=== PATIENT | female | born 1990 | race Caucasian/White ===

== ENCOUNTER 2017-01-29 22:02 | Emergency (ER) | payer BC, OTHER ==
[2017-01-29 23:35] LABS: ABSOLUTE BASOPHILS # (AUTO) 0.1 10^3/uL (0.0-0.2); ABSOLUTE EOSINOPHILS # (AUTO) 0.1 10^3/uL (0.0-0.6); ABSOLUTE LYMPHOCYTES (AUTO) 2.1 10^3/uL (0.5-4.7); ABSOLUTE MONOCYTES (AUTO) 0.5 10^3/uL (0.1-1.4); ABSOLUTE NEUT (AUTO) 5.4 10^3/uL (1.7-8.2); BASOPHILS % (AUTO) 0.7 % (0-2); EOSINOPHILS % (AUTO) 1.6 % (0-6); HEMATOCRIT 40.2 % (36.0-47.0); HEMOGLOBIN 13.5 g/dL (12.0-15.5); HGB HCT DIFFERENCE 0.3; LYMPHOCYTES % (AUTO) 25.8 % (13-45); MEAN CORPUSCULAR HEMOGLOBIN 29.3 pg (27.0-33.4); MEAN CORPUSCULAR HGB CONC 33.6 g/dL (32.0-36.0); MEAN CORPUSCULAR VOLUME 87 fl (80-97); MONOCYTES % (AUTO) 6.6 % (3-13); RED CELL DISTRIBUTION WIDTH 12.9 % (11.5-14.0); SEGMENTED NEUTROPHILS % (AUTO) 65.3 % (42-78); WHITE BLOOD COUNT 8.2 10^3/uL (4.0-10.5)
[2017-01-29 23:50] LABS: ALANINE AMINOTRANSFERASE 29 U/L (9-52); ALBUMIN 4.4 g/dL (3.5-5.0); ALKALINE PHOSPHATASE 53 U/L (38-126); ANION GAP 13 (5-19); ASPARTATE AMINO TRANSFERASE 22 U/L (14-36); BILIRUBIN,TOTAL 0.3 mg/dL (0.2-1.3); BLOOD UREA NITROGEN 15 mg/dL (7-20); CALCIUM 9.2 mg/dL (8.4-10.2); CARBON DIOXIDE 24 mmol/L (22-30); CHLORIDE 104 mmol/L (98-107); CREATININE RESULT 0.73 mg/dL (0.52-1.25); GLUCOSE 135 mg/dL (75-110); POTASSIUM 4.2 mmol/L (3.6-5.0); SODIUM 140.9 mmol/L (137-145); TOTAL PROTEIN 6.9 g/dL (6.3-8.2)
[2017-01-30 00:07] LABS: APPEARANCE,URINE SLIGHTLY-CLOUDY; BILIRUBIN,URINE NEGATIVE (NEGATIVE); GLUCOSE, URINE NEGATIVE (NEGATIVE); KETONES,URINE TRACE mg/dL (NEGATIVE); LEUKOCYTE ESTERASE,URINE NEGATIVE (NEGATIVE); NITRITE,URINE NEGATIVE (NEGATIVE); PROTEIN,URINE NEGATIVE (NEGATIVE); URINE SPECIFIC GRAVITY 1.031; UROBILINOGEN,URINE NEGATIVE mg/dL (<2.0)
[2017-01-30 00:21] LABS: URINE BARBITURATES SCREEN NEGATIVE; URINE METHADONE SCREEN NEGATIVE; URINE OPIATES LOW NEGATIVE; URINE PHENCYCLIDINE SCREEN NEGATIVE
[2017-01-30] MEDS ORDERED: NORMAL SALINE 1000 ML 1,000 ML IV ONE (00:55)
[2017-01-30] MEDS ORDERED: KETOROLAC TROMETHAMINE INJ/PF 30 MG/1 ML SDV IV ONE (00:55)
--- NOTE | 2017-01-30 01:03 | ER Document Report ---
ED Neuro Symptoms/Deficit - General Chief Complaint: Leg Pain Stated Complaint: MUSCLE CRAMPS Mode of Arrival: Ambulatory Information source: Patient, Parent TRAVEL OUTSIDE OF THE [place] IN LAST 30 DAYS: No - HPI Notes: Patient arrives with complaints of muscle cramps. States her last several weeks she's had a few episodes where her feet have cramped up causing her toes to crawl up. She states that she was walking out of a movie this evening when both of her feet cramped up causing her toes to curl under her causing her to be unable to walk. She states that she then had a pain go all the way up her legs and her back. She states that the pain was so bad that she thought she was going to pass out, her father states that she may have had a very brief episode of syncope during this episode. There was no tonic-clonic type activity. States now she just feels sore. She is able to walk but states that it is difficult. She complains of some mild decreased sensation to the right foot. She denies any fevers. She denies any nausea, vomiting, diarrhea. She denies any rash. She denies any chest pain, shortness of breath. No rash. No headache, blurred vision. She denies any drug use. She denies any alcohol use. She is on no medications. She denies any medical problems. Nothing makes her symptoms better or worse. - Related Data Allergies/Adverse Reactions: No Known Allergies Allergy (Unverified 01/29/17 22:24) Past Medical History - Social History Smoking Status: Unknown if Ever Smoked Family History: Reviewed & Not Pertinent Patient has suicidal ideation: No Patient has homicidal ideation: No - Past Medical History Cardiac Medical History: Denies: Hx Coronary Artery Disease, Hx Heart Attack, Hx Hypertension Pulmonary Medical History: Denies: Hx Asthma, Hx Bronchitis, Hx COPD, Hx Pneumonia Neurological Medical History: Denies: Hx Cerebrovascular Accident, Hx Seizures Renal/ Medical History: Denies: Hx Peritoneal Dialysis Musculoskeltal Medical History: Denies Hx Arthritis Past Surgical History: Denies: Hx Hysterectomy, Hx Pacemaker - Immunizations Hx Diphtheria, Pertussis, Tetanus Vaccination: Yes Review of Systems - Review of Systems -: Yes All other systems reviewed and negative Physical Exam - Vital signs Vitals: Temp Pulse Resp BP Pulse Ox 98.0 F 76 14 129/60 H 99 01/29/17 22:24 01/29/17 22:24 01/29/17 22:24 01/29/17 22:24 01/29/17 22:24 - Notes Notes: GENERAL: alert, cooperative, nontoxic, no distress. HEAD: normocephalic, atraumatic EYES: conjunctiva pink without discharge, no external redness or swelling. Pupils are equal, round, reactive to light. EARS: no external swelling, no external redness NOSE: atraumatic, no external swelling MOUTH/THROAT: mucous membranes moist and pink, posterior pharynx without erythema, swelling, exudate. No trismus or drooling. NECK: soft, supple, full range of motion, no meningismus. CHEST: no distress, lungs clear and equal throughout. No wheezing, rales, rhonchi. CARDIAC: regular rate and rhythm, no murmur, normal capillary refill, normal pulses. No peripheral edema noted. BACK: full range of motion, no CVA tenderness. EXTREMITIES: full range of motion of all extremities. No redness, no swelling. NEURO: alert and oriented 3, cranial nerves II through XII are grossly intact. Upper and lower extremities are equal throughout. Slight decreased sensation to the right foot. No focal deficits, full range of motion of all extremities. normal finger to nose. NIH stroke score of 0. PYSCH: appropriate mood, affect. Patient is cooperative. SKIN: pink, warm, dry, no rash. - Cardiovascular Pulses: Decreased: Posterior tibial, Dorsalis pedis Course - Re-evaluation Re-evalutation: 01/30/17 01:26 Patient is nontoxic. Stable vitals. The patient has a benign exam at this time. Her only deficit is some mild sensory deficit to the right foot. She has normal pulse and no sign of a real vascular deficit. No sign of rhabdomyolysis, or significant collection White abnormality. TSH is currently pending at this time. Patient is noted have some ketones and concentrated urine , is possible that her muscle cramps are secondary to dehydration. Also possible she could have neurological condition causing the symptoms that she is having. This point believe she would warrant a referral and evaluation by neurology. I had ordered IV fluids and Toradol for the patient here, she states that she is very tired, needs to get up for work tomorrow and light to leave without getting fluids or meds. She would like a referral to neurology and a prescription for something to help with discomfort. At this point I'll discharge the patient home. Follow up with neurology or her primary care doctor at the next available appointment. Follow up sooner for increasing pain , numbness, tingling, weakness, any further concerns. The patient's emergency department workup and current diagnosis were explained to the patient and or family. Follow-up instructions were provided. Medications if prescribed were discussed. Instructions for when to return to the emergency department including specific worrisome symptoms were discussed with the patient and/or family. The patient is noted to have elevated blood pressure during today's emergency department visit. The patient was informed of this finding. The patient was instructed that this may be related to pre-hypertension and requires further evaluation with a primary care provider. The patient has no hypertensive symptoms at this time. - Vital Signs Vital signs: Temp Pulse Resp BP Pulse Ox 98.0 F 76 14 129/60 H 99 01/29/17 22:24 01/29/17 22:24 01/29/17 22:24 01/29/17 22:24 01/29/17 22:24 - Laboratory Result Diagrams: 01/29/17 23:08 01/29/17 23:08 Laboratory results interpreted by me: 01/29/17 01/29/17 23:08 23:45 Glucose 135 H Urine Ketones TRACE H Urine Ascorbic Acid 20 H Discharge - Discharge Clinical Impression: Muscle cramps Condition: Stable Disposition: HOME, SELF-CARE Instructions: Myalagia (Muscle Pain) ([facility]) Additional Instructions: Take medications as prescribed. Drink plenty of fluids. Follow-up with your family doctor or neurology at the next available appointment for reevaluation. Follow-up sooner for increased pain, weakness, severe headache, blurred or loss vision, or any further concerns. Your blood pressure was elevated during today's visit. Have this rechecked with your doctor. Referrals: EREN COHEN MD [ACTIVE STAFF] - Follow up as needed
[2017-01-30 02:03] VITALS: BP 106/55
== END 2017-01-30 02:04 | disposition home or self-care (01) ==
LOC: ER 22:02
DX: R25.2 Cramp and spasm (principal); R20.9 Unspecified disturbances of skin sensation; R03.0 Elevated blood-pressure reading, without diagnosis of hypertension
CPT/HCPCS: 36415; 80053; 80307; 81001; 81025; 82550; 83735; 84443; 85025; 99283

== ENCOUNTER 2018-05-24 10:34 | Emergency (ER) | payer BC ==
--- NOTE | 2018-05-24 11:41 | ER Document Report ---
ED General - General Chief Complaint: Probable Seizure Stated Complaint: POSSIBLE SEIZURES Time Seen by Provider: 05/24/18 11:34 Notes: Patient brought in by EMS from her workplace after reportedly having a seizure. Patient says that her work is mostly sedentary and she began to feel lightheaded and stood up and does not remember anything that happened after that. Her coworkers describe her as falling to the floor and beginning to see his all over with all extremities involved. Her eyes rolled back into her head. She was breathing irregular and screaming. Patient does not remember any of these things occurring. She did not lose control of her bladder or bowels. She does complain of some soreness of the left jaw and of the right tongue. Denies neck pain. Patient says that she normally eats something by this time a day, but has not had anything to eat and only a couple of sips of coffee. She went to work this morning around 9:00. Did not sleep well last night and only slept about 5 hours. She feels tired and not well rested. She has a history of absence seizures, diagnosed around the fifth grade, but none as an adult. Mother describes a test in which they had the patient breathes very rapidly which reproduced the seizure activity. These so-called seizures are blank staring off into space for short period of time, perhaps a minute. She never had full-blown grand mal seizures and was never treated with any medication for seizures. Patient says that they seem to have occurred in the past when she did not get a good night sleep, like last night. She has not had one of these episodes since she was in school around the fifth grade. Patient has a history of lupus and started taking Plaquenil about 6 weeks or 2 months ago. She is also on a prescription allergy medication. Also, she takes a nutritional supplement called Plexus. She was diagnosed with vaginitis 10 days ago and has been on an antibiotic for that condition and is almost finished with it. TRAVEL OUTSIDE OF THE [place] IN LAST 30 DAYS: No - Related Data Allergies/Adverse Reactions: No Known Allergies Allergy (Unverified 01/29/17 22:24) Past Medical History - Social History Smoking Status: Unknown if Ever Smoked Family History: Reviewed & Not Pertinent - Immunizations Hx Diphtheria, Pertussis, Tetanus Vaccination: Yes Review of Systems - Review of Systems Notes: REVIEW OF SYSTEMS: CONSTITUTIONAL : Denies fever. EENT: Patient has pain in the left side of her mouth and cheek and pain of the right side of the tongue where she apparently bit her tongue. Denies eye, ear, nose throat pain or other EENT symptoms. CARDIOVASCULAR: Denies chest pain. RESPIRATORY: Denies cough, chest congestion, or shortness of breath. GASTROINTESTINAL: Denies abdominal pain or nausea, vomiting, or diarrhea. GENITOURINARY: Denies difficulty or painful urinating, urinary frequency, blood in urine. MUSCULOSKELETAL: Denies back or neck pain. Denies joint pain or swelling. SKIN: Denies rash or skin lesions. NEUROLOGICAL: See HPI. Some mild diffuse headache. Denies sensory loss or motor deficits. ALL OTHER SYSTEMS REVIEWED AND NEGATIVE. Physical Exam - Vital signs Vitals: Temp Pulse Resp BP Pulse Ox 98.3 F 89 16 114/50 L 100 05/24/18 10:49 05/24/18 10:49 05/24/18 10:49 05/24/18 10:49 05/24/18 10:49 Interpretation: Normal - Notes Notes: PHYSICAL EXAMINATION: GENERAL: Well-appearing, in no acute distress. HEAD: Atraumatic, normocephalic. EYES: Pupils equal round and reactive to light, extraocular movements intact. ENT: oropharynx without exudates. Right side of the tongue has some chewed, macerated area from apparently biting her tongue. No sutures necessary. Inner aspect of the left lower cheek inside the mouth is also tender to touch, but no significant bleeding and nothing that require sutures. Moist mucous membranes. NECK: Normal range of motion, supple. LUNGS: Breath sounds clear and equal bilaterally. HEART: Regular rate and rhythm without murmurs. ABDOMEN: Soft, nontender. No guarding or rebound. No masses. BACK: No tenderness throughout entire back. EXTREMITIES: Normal range of motion without pain. Says she has some pain of the left proximal upper arm which suggests he may have hit that area in her fall and seizure. NEUROLOGICAL: Normal speech, normal gait. Normal sensory, motor, and reflex exams. Awake, alert, and oriented x3. Cranial nerves normal. PSYCH: Normal mood, normal affect. SKIN: Warm, dry, no rashes. Course - Re-evaluation Re-evalutation: 05/24/18 12:[address] Jonatan Sood, patient's primary care provider for her lupus. We decided the patient will stay on Plaquenil as it is not associated with seizure disorders. He will arrange for follow-up by neurology there at their office in [facility]. - Vital Signs Vital signs: Temp Pulse Resp BP Pulse Ox 98.3 F 52 L 16 100/53 L 99 05/24/18 16:41 05/24/18 16:41 05/24/18 16:41 05/24/18 16:41 05/24/18 16:41 - Laboratory Result Diagrams: 05/24/18 10:08 05/24/18 10:08 Laboratory results interpreted by me: 05/24/18 05/24/18 05/24/18 10:08 10:08 10:08 RDW 14.3 H Lymphocytes % 49.2 H Carbon Dioxide 13 L Anion Gap 26 H Magnesium 2.4 H Total Protein 8.4 H Albumin 5.2 H TSH 5.74 H Urine Ascorbic Acid 05/24/18 10:47 RDW Lymphocytes % Carbon Dioxide Anion Gap Magnesium Total Protein Albumin TSH Urine Ascorbic Acid 40 H - Diagnostic Test Radiology reviewed: Image reviewed, Reports reviewed - CT scan of the brain and facial bones are both negative. - EKG Interpretation by Me EKG shows normal: Sinus rhythm Rate: Normal Rhythm: NSR Carpio/QRS: RBBB Discharge - Discharge Clinical Impression: Seizure Condition: Stable Disposition: HOME, SELF-CARE Additional Instructions: Seizure You have had a seizure. Seizure disorders (epilepsy) of one sort or another affect about one out of 50 people. The seizure occurs because of abnormal electrical activity in the brain. Seizures may be due to drugs and alcohol, strokes, brain injury, or infection. In the most common form of epilepsy, no cause can be found. You will require further evaluation to determine the cause of your seizure, and to determine whether anti-seizure medication is required. This follow-up testing is important, so please call us if you encounter problems with scheduling of tests or appointments. YOU SHOULD NOT DRIVE until released to do so by your physician. The law requires that seizures be reported to the [place] driver's license bureau--a seizure while driving could be catastrophic. Call the doctor if seizures recur, or if you develop new symptoms such as fever, severe headache, stiff neck, confusion or increasing sleepiness, weakness or numbness, or visual problems. NORMAL EXAM AND WORKUP: At this time, your examination and workup show no significant abnormality. No significant abnormal physical findings were noted. All laboratory, EKG, and imaging (x-ray, CT scans, ultrasound) studies that were ordered show no significant abnormality. Although your examination and all studies that were ordered showed no significant abnormal finding, there are no examinations and no studies that are 100% accurate. There is always the possibility that some abnormality could exist and not be detected with physical examination or within the limits and capabilities of laboratory and other studies. You should return or follow up as you were instructed on your visit today for further evaluation if your symptoms do not resolve. FOLLOW-UP CARE: If you have been referred to a physician for follow-up care, call the physician s office for an appointment as you were instructed or within the next two days. If you experience worsening or a significant change in your symptoms, notify the physician immediately or return to the Emergency Department at any time for re-evaluation. While it sounds like he definitely had a seizure, your workup here today was essentially completely normal. I spoke with your doctor, Dr. Jonatan Sood, and he is going to arrange for you to receive an evaluation by a neurologist to complete your workup. I think you can return to regular work on Wednesday, with the exception of avoiding precarious activities like climbing on ladders, swimming, etc. and also you should avoid driving your car until you are seen by a neurologist and been cleared to do so. About half of the people who have a first-time seizure, do not have another one. For that reason, we do not usually put patients on antiseizure medicines for just her first seizure. Return at any time if you think that you need to be reevaluated. Forms: Return to Work Referrals: CHI TAVERAS MD [Primary Care Provider] - Follow up as needed
[2018-05-24 12:07] LABS: APPEARANCE,URINE CLEAR; BILIRUBIN,URINE NEGATIVE (NEGATIVE); COLOR,URINE STRAW; GLUCOSE, URINE NEGATIVE (NEGATIVE); KETONES,URINE NEGATIVE (NEGATIVE); LEUKOCYTE ESTERASE,URINE NEGATIVE (NEGATIVE); NITRITE,URINE NEGATIVE (NEGATIVE); PROTEIN,URINE NEGATIVE (NEGATIVE); URINE SPECIFIC GRAVITY 1.008; UROBILINOGEN,URINE NEGATIVE mg/dL (<2.0)
[2018-05-24 12:11] LABS: ABSOLUTE EOSINOPHILS # (AUTO) 0.1 10^3/uL (0.0-0.6); ABSOLUTE LYMPHOCYTES (AUTO) 2.7 10^3/uL (0.5-4.7); ABSOLUTE MONOCYTES (AUTO) 0.2 10^3/uL (0.1-1.4); ABSOLUTE NEUT (AUTO) 2.4 10^3/uL (1.7-8.2); BASOPHILS % (AUTO) 0.6 % (0-2); EOSINOPHILS % (AUTO) 2.1 % (0-6); HEMATOCRIT 43.4 % (36.0-47.0); HEMOGLOBIN 13.9 g/dL (12.0-15.5); LYMPHOCYTES % (AUTO) 49.2 % (13-45); MEAN CORPUSCULAR HEMOGLOBIN 28.8 pg (27.0-33.4); MEAN CORPUSCULAR VOLUME 90 fl (80-97); MONOCYTES % (AUTO) 4.3 % (3-13); PLATELET COUNT 302 10^3/uL (150-450); RED BLOOD COUNT 4.83 10^6/uL (3.72-5.28); RED CELL DISTRIBUTION WIDTH 14.3 % (11.5-14.0); SEGMENTED NEUTROPHILS % (AUTO) 43.8 % (42-78); TOTAL CELLS COUNTED % (AUTO) 100 %; WHITE BLOOD COUNT 5.6 10^3/uL (4.0-10.5)
--- NOTE | 2018-05-24 12:17 | RADIOLOGY REPORT (SQ) ---
EXAM DESCRIPTION: CT FACIAL AREA WITHOUT COMPLETED DATE/TIME: 05/24/2018 12:07 pm REASON FOR STUDY: Seizure, tender swelling left mandible COMPARISON: None. TECHNIQUE: Noncontrasted images through the facial bones and orbits windowed for bone and soft tissu e. Additional coronal and sagittal reconstructed images reviewed. All images stored on PACS. All CT scanners at this facility use dose modulation, iterative reconstruction, and/or weight based d osing when appropriate to reduce radiation dose to as low as reasonably achievable (ALARA). [facility]: Dose Right [facility]: CareDose [facility]: Dose Right [facility]: Teradose 4D [facility]: [employer] RADIATION DOSE: CT Rad equipment meets quality standard of care and radiation dose reduction techniq ues were employed. CTDIvol: 30.4 mGy. DLP: 540 mGy-cm. mGy. LIMITATIONS: None. FINDINGS: FACIAL BONES: No fracture or bone lesion. ORBITS: Intact. No fracture. Symmetric intact globes and retroorbital soft tissues. PARANASAL SINUSES: Clear. No significant mucosal thickening, mass or fluid. No nasal polyps. Maxill cary sinus outlets are patent. SOFT TISSUES: No mass or edema. INFERIOR BRAIN: See separate report of the same date. OTHER: No other significant finding. IMPRESSION: NO ACUTE FINDINGS. TECHNICAL DOCUMENTATION: JOB ID: [id number] Quality ID # [id number]: Final reports with documentation of one or more dose reduction techniques (e.g., Au tomated exposure control, adjustment of the mA and/or kV according to patient size, use of iterative reconstruction technique) 2010 [employer]- All Rights Reserved Reading location - IP/workstation name: [email or web address]
--- NOTE | 2018-05-24 12:18 | RADIOLOGY REPORT (SQ) ---
EXAM DESCRIPTION: CT HEAD WITHOUT COMPLETED DATE/TIME: 05/24/2018 12:07 pm REASON FOR STUDY: Seizure COMPARISON: None. TECHNIQUE: Axial images acquired through the brain without intravenous contrast. Images reviewed wi th bone, brain and subdural windows. Additional sagittal and coronal reconstructions were generated. Images stored on PACS. All CT scanners at this facility use dose modulation, iterative reconstruction, and/or weight based d osing when appropriate to reduce radiation dose to as low as reasonably achievable (ALARA). [facility]: Dose Right [facility]: CareDose [facility]: Dose Right [facility]: Teradose 4D [facility]: [employer] RADIATION DOSE: CT Rad equipment meets quality standard of care and radiation dose reduction techniq ues were employed. CTDIvol: 53.2 mGy. DLP: 1070 mGy-cm. mGy. LIMITATIONS: None. FINDINGS: VENTRICLES: Normal size and contour. CEREBRUM: No masses. No hemorrhage. No midline shift. No evidence for acute infarction. Normal gra y/white matter differentiation. No areas of low density in the white matter. CEREBELLUM: No masses. No hemorrhage. No alteration of density. No evidence for acute infarction. EXTRAAXIAL SPACES: No fluid collections. No masses. ORBITS AND GLOBE: No intra- or extraconal masses. Normal contour of globe without masses. CALVARIUM: No fracture. PARANASAL SINUSES: No fluid or mucosal thickening. SOFT TISSUES: No mass or hematoma. OTHER: No other significant finding. IMPRESSION: NORMAL BRAIN CT WITHOUT CONTRAST. EVIDENCE OF ACUTE STROKE: NO. COMMENT: Quality ID # [id number]: Final reports with documentation of one or more dose reduction techniques (e.g., Automated exposure control, adjustment of the mA and/or kV according to patient size, use of iterative reconstruction technique) TECHNICAL DOCUMENTATION: JOB ID: [id number] [employer]- All Rights Reserved Reading location - IP/workstation name: [email or web address]
[2018-05-24 12:23] LABS: ALANINE AMINOTRANSFERASE 25 U/L (9-52); ALBUMIN 5.2 g/dL (3.5-5.0); ALKALINE PHOSPHATASE 47 U/L (38-126); ASPARTATE AMINO TRANSFERASE 31 U/L (14-36); BILIRUBIN,DIRECT 0.3 mg/dL (0.0-0.4); BILIRUBIN,TOTAL 0.5 mg/dL (0.2-1.3); BLOOD UREA NITROGEN 8 mg/dL (7-20); CALCIUM 10.2 mg/dL (8.4-10.2); CHLORIDE 103 mmol/L (98-107); CREATINE KINASE 96 U/L (30-135); GLUCOSE 101 mg/dL (75-110); POTASSIUM 4.5 mmol/L (3.6-5.0); TOTAL PROTEIN 8.4 g/dL (6.3-8.2)
[2018-05-24 12:28] LABS: CARBON DIOXIDE 13 mmol/L (22-30); SODIUM 141.5 mmol/L (137-145)
[2018-05-24 12:30] LABS: ANION GAP 26 (5-19)
[2018-05-24 13:04] LABS: FREE T4 (FREE THYROXINE) 1.03 ng/dL (0.78-2.19)
[2018-05-24 13:18] LABS: THYROID STIMULATING HORMONE 5.74 uIU/mL (0.47-4.68)
--- NOTE | 2018-05-24 13:45 | EKG REPORT ---
SEVERITY:- ABNORMAL ECG - SINUS RHYTHM INCOMPLETE RIGHT BUNDLE BRANCH BLOCK : Confirmed by: Celeste Napier MD 24-May-2018 13:43:39
--- NOTE | 2018-05-24 15:01 | RADIOLOGY REPORT (SQ) ---
EXAM DESCRIPTION: MRI HEAD COMBO COMPLETED DATE/TIME: 05/24/2018 2:46 pm REASON FOR STUDY: Grand mall seizure, first, Hx lupus COMPARISON: None. TECHNIQUE: Multiplanar imaging includes noncontrasted T1, T2, FLAIR, diffusion with ADC map and post gadolinium contrast T1 sequences. Images stored on PACS. CONTRAST TYPE AND DOSE: 10 mL Prohance. RENAL FUNCTION: GFR > 60. LIMITATIONS: None. FINDINGS: ANATOMY: No anomalies. Normal vascular flow voids. Pituitary fossa normal. CSF SPACES: Normal in size and contour. No hemorrhage. CEREBRUM: Sulci and gyri normal in size and contour. Normal white matter signal on FLAIR imaging. No evidence of hemorrhage, mass, or extraaxial fluid collection. No abnormal enhancement post contrast. POSTERIOR FOSSA: No signal alteration. No hemorrhage. No edema, masses, or mass effect. Internal lila tory canals, cerebellopontine angles, mastoids normal. No enhancing lesions. No abnormal enhancement post contrast. DIFFUSION IMAGING: Negative for acute or subacute infarction. ORBITS: No masses. Globes normal. PARANASAL SINUSES: No fluid levels. Mucosa normal. OTHER: No other significant finding. IMPRESSION: NORMAL MRI OF THE BRAIN WITHOUT AND WITH INTRAVENOUS GADOLINIUM CONTRAST. EVIDENCE OF ACUTE STROKE: NO. TECHNICAL DOCUMENTATION: JOB ID: [id number] [employer]- All Rights Reserved Reading location - IP/workstation name: [facility]-[email or web address]
[2018-05-24 16:47] VITALS: BP 100/53
== END 2018-05-24 16:46 | disposition home or self-care (01) ==
LOC: ER 10:34
DX: R56.9 Unspecified convulsions (principal); R68.84 Jaw pain
CPT/HCPCS: 93005; 99285; 36415; 84439; 82550; 83735; 84443; 84703; 85025; 80053; 81001; 70553; 70450; 70486; 93010; A9576

== ENCOUNTER 2018-10-12 10:46 | Emergency (ER) | payer BC ==
[2018-10-12 10:59] VITALS: BP 107/55
--- NOTE | 2018-10-12 11:55 | ER Document Report ---
ED Medical Screen (RME) - General TRAVEL OUTSIDE OF THE [place] IN LAST 30 DAYS: No <TESS KIM - Last Filed: 10/12/18 12:02> <FABY BANKS - Last Filed: 10/12/18 21:19> - General Chief Complaint: Breathing Difficulty Stated Complaint: DIFFICULTY BREATHING Time Seen by Provider: 10/12/18 11:49 Notes: 28-year-old female who presents to the emergency department today with compla ints of shortness of breath with associated chest heaviness, cough, and lightheadedness. Patient states that she was started on Topamax x1.5-2 months ago and since starting the third tier of medication she has noticed the symptoms. I have greeted and performed a rapid initial assessment of this patient. A comprehensive ED assessment and evaluation of the patient, analysis of test results, and completion of the medical decision making process will be conducted by additional ED providers. Review of systems: Cardiovascular: Lightheadedness. Respiratory: Short of breath. Lungs feel "heavy". Cough. PHYSICAL EXAM GENERAL: Alert, interacts well. No acute distress. HEAD: Normocephalic, atraumatic. EYES: Pupils equal, round, and reactive to light. Extraocular movements intact. ENT: Oral mucosa moist, tongue midline. NECK: Full range of motion. Supple. Trachea midline. LUNGS: No respiratory distress. EXTREMITIES: Moves all 4 extremities spontaneously. NEUROLOGICAL: Alert and oriented x3. Normal speech. PSYCH: Normal affect, normal mood. SKIN: Warm, dry, normal turgor. No rashes or lesions noted. (TESS KIM) - Related Data Allergies/Adverse Reactions: lamotrigine Allergy (Verified 10/12/18 10:55) Past Medical History - Social History Chew tobacco use (# tins/day): No Frequency of alcohol use: None Drug Abuse: None - Past Medical History Cardiac Medical History: Denies: Hx Coronary Artery Disease, Hx Heart Attack, Hx Hypertension Pulmonary Medical History: Denies: Hx Asthma, Hx Bronchitis, Hx COPD, Hx Pneumonia Neurological Medical History: Reports: Hx Seizures. Denies: Hx Cerebrovascular Accident Renal/ Medical History: Denies: Hx Peritoneal Dialysis Musculoskeltal Medical History: Denies Hx Arthritis Past Surgical History: Denies: Hx Hysterectomy, Hx Pacemaker - Immunizations Hx Diphtheria, Pertussis, Tetanus Vaccination: Yes <TESS KIM - Last Filed: 10/12/18 12:02> - Vital signs Vitals: Temp Pulse Resp BP Pulse Ox 98.0 F 53 L 16 107/55 L 99 10/12/18 10:58 10/12/18 10:58 10/12/18 10:58 10/12/18 10:58 10/12/18 10:58 Course - Laboratory Result Diagrams: 10/12/18 12:29 10/12/18 12:29 <FABY BANKS - Last Filed: 10/12/18 21:19> - Vital Signs Vital signs: Temp Pulse Resp BP Pulse Ox 98.0 F 53 L 16 107/55 L 99 10/12/18 10:58 10/12/18 10:58 10/12/18 10:58 10/12/18 10:58 10/12/18 10:58 - Laboratory Laboratory results interpreted by me: 10/12/18 12:29 Chloride 110 H Doctor's Discharge <TESS KIM - Last Filed: 10/12/18 12:02> <FABY BANKS - Last Filed: 10/12/18 21:19> - Discharge Clinical Impression: Shortness of breath, Medication adverse effect Condition: Good Disposition: HOME, SELF-CARE Additional Instructions: You were seen today in the emergency department for your shortness of breath. You had an evaluation including a physical exam, and x-ray, blood work, and EKG. Your blood work, x-ray, EKG did not show why you are feeling short of breath today. You have been given a trial of a steroid in the emergency department and will receive a prescription for the next few days. Take it and see if it improves your symptoms. If it does not improve your symptoms talk to your doctor about stopping your Topamax. If it does improve your symptoms continue to take your Topamax as previously. Prescriptions: Prednisone 50 mg PO DAILY #5 tablet Referrals: CHI TAVERAS MD [Primary Care Provider] - Follow up as needed Scribe Documentation - Scribe Written by Amaya:: Amaya Sotelo, 10/12/2018 1205 acting as scribe for :: Ko <TESS KIM - Last Filed: 10/12/18 12:02>
--- NOTE | 2018-10-12 12:48 | RADIOLOGY REPORT (SQ) ---
EXAM DESCRIPTION: CHEST 2 VIEWS COMPLETED DATE/TIME: 10/12/2018 12:29 pm REASON FOR STUDY: SOB COMPARISON: AP chest 05/05/2008 EXAM PARAMETERS: NUMBER OF VIEWS: two views TECHNIQUE: Digital Frontal and Lateral radiographic views of the chest acquired. RADIATION DOSE: NA LIMITATIONS: none FINDINGS: LUNGS AND PLEURA: No opacities, masses or pneumothorax. No pleural effusion. MEDIASTINUM AND HILAR STRUCTURES: No masses or contour abnormalities. HEART AND VASCULAR STRUCTURES: Heart normal size. No evidence for failure. BONES: No acute findings. HARDWARE: None in the chest. OTHER: No other significant finding. IMPRESSION: NO ACUTE RADIOGRAPHIC FINDING IN THE CHEST. TECHNICAL DOCUMENTATION: JOB ID: [id number] [employer]- All Rights Reserved Reading location - IP/workstation name: [email or web address]
[2018-10-12 12:49] LABS: ABSOLUTE LYMPHOCYTES (AUTO) 1.6 10^3/uL (0.5-4.7); ABSOLUTE MONOCYTES (AUTO) 0.2 10^3/uL (0.1-1.4); BASOPHILS % (AUTO) 0.5 % (0-2); EOSINOPHILS % (AUTO) 0.6 % (0-6); HEMATOCRIT 41.2 % (36.0-47.0); LYMPHOCYTES % (AUTO) 32.3 % (13-45); MEAN CORPUSCULAR HEMOGLOBIN 30.2 pg (27.0-33.4); MEAN CORPUSCULAR HGB CONC 34.1 g/dL (32.0-36.0); MEAN CORPUSCULAR VOLUME 89 fl (80-97); MONOCYTES % (AUTO) 4.5 % (3-13); PLATELET COUNT 234 10^3/uL (150-450); RED BLOOD COUNT 4.64 10^6/uL (3.72-5.28); RED CELL DISTRIBUTION WIDTH 13.2 % (11.5-14.0); SEGMENTED NEUTROPHILS % (AUTO) 62.1 % (42-78); TOTAL CELLS COUNTED % (AUTO) 100 %; WHITE BLOOD COUNT 4.9 10^3/uL (4.0-10.5)
[2018-10-12 12:51] LABS: ALANINE AMINOTRANSFERASE 25 U/L (9-52); ALBUMIN 4.5 g/dL (3.5-5.0); ALKALINE PHOSPHATASE 45 U/L (38-126); ANION GAP 8 (5-19); ASPARTATE AMINO TRANSFERASE 20 U/L (14-36); BILIRUBIN,DIRECT 0.2 mg/dL (0.0-0.4); BILIRUBIN,TOTAL 0.4 mg/dL (0.2-1.3); BLOOD UREA NITROGEN 14 mg/dL (7-20); CALCIUM 9.3 mg/dL (8.4-10.2); CARBON DIOXIDE 22 mmol/L (22-30); CHLORIDE 110 mmol/L (98-107); GLUCOSE 92 mg/dL (75-110); SODIUM 140.3 mmol/L (137-145)
--- NOTE | 2018-10-12 13:13 | EKG REPORT ---
SEVERITY:- ABNORMAL ECG - SINUS RHYTHM NONSPECIFIC INTRAVENTRICULAR CONDUCTION DELAY : Confirmed by: Abdoul Cabrera 12-Oct-2018 13:13:37
[2018-10-12 13:20] LABS: APPEARANCE,URINE CLEAR; BILIRUBIN,URINE NEGATIVE (NEGATIVE); COLOR,URINE YELLOW; GLUCOSE, URINE NEGATIVE (NEGATIVE); KETONES,URINE NEGATIVE (NEGATIVE); LEUKOCYTE ESTERASE,URINE NEGATIVE (NEGATIVE); NITRITE,URINE NEGATIVE (NEGATIVE); PROTEIN,URINE NEGATIVE (NEGATIVE); URINE SPECIFIC GRAVITY 1.014; UROBILINOGEN,URINE NEGATIVE mg/dL (<2.0)
--- NOTE | 2018-10-12 13:31 | ER Document Report ---
ED General - General Chief Complaint: Breathing Difficulty Stated Complaint: DIFFICULTY BREATHING Time Seen by Provider: 10/12/18 11:49 Mode of Arrival: Ambulatory Information source: Patient, Parent TRAVEL OUTSIDE OF THE [place] IN LAST 30 DAYS: No - HPI Patient complains to provider of: short of breath Onset: Other - This is a 28-year-old female with a bizarre past medical history including a dubious diagnosis of epilepsy in the start of Keppra for which she had a rash reaction. She was started on medication thereafter for which she feels like she has become short of breath as a result from. She denies fevers or chills, cough, abdominal pain diarrhea constipation dysuria she says that it is probably from her medication. - Related Data Allergies/Adverse Reactions: lamotrigine Allergy (Verified 10/12/18 10:55) Past Medical History - General Information source: Patient, Parent - Social History Smoking Status: Never Smoker Chew tobacco use (# tins/day): No Frequency of alcohol use: None Drug Abuse: None Family History: Reviewed & Not Pertinent Patient has suicidal ideation: No Patient has homicidal ideation: No - Past Medical History Cardiac Medical History: Denies: Hx Coronary Artery Disease, Hx Heart Attack, Hx Hypertension Pulmonary Medical History: Denies: Hx Asthma, Hx Bronchitis, Hx COPD, Hx Pneumonia Neurological Medical History: Reports: Hx Seizures. Denies: Hx Cerebrovascular Accident Renal/ Medical History: Denies: Hx Peritoneal Dialysis Musculoskeletal Medical History: Denies Hx Arthritis Past Surgical History: Denies: Hx Hysterectomy, Hx Pacemaker - Immunizations Hx Diphtheria, Pertussis, Tetanus Vaccination: Yes Review of Systems - Review of Systems -: Yes All other systems reviewed and negative Physical Exam - Vital signs Vitals: Temp Pulse Resp BP Pulse Ox 98.0 F 53 L 16 107/55 L 99 10/12/18 10:58 10/12/18 10:58 10/12/18 10:58 10/12/18 10:58 10/12/18 10:58 Interpretation: Normal - General General appearance: Appears well, Alert - HEENT Head: Normocephalic, Atraumatic Eyes: Normal Pupils: PERRL - Respiratory Respiratory status: No respiratory distress Chest status: Nontender Breath sounds: Normal Chest palpation: Normal - Cardiovascular Rhythm: Regular Heart sounds: Normal auscultation Murmur: No - Abdominal Inspection: Normal Distension: No distension Bowel sounds: Normal Tenderness: Nontender Organomegaly: No organomegaly - Back Back: Normal, Nontender - Extremities General upper extremity: Normal inspection, Nontender, Normal color, Normal ROM, Normal temperature General lower extremity: Normal inspection, Nontender, Normal color, Normal ROM, Normal temperature, Normal weight bearing. No: Agustín's sign - Neurological Neuro grossly intact: Yes Cognition: Normal Orientation: AAOx4 Wallace Coma Scale Eye Opening: Spontaneous Wallace Coma Scale Verbal: Oriented Yun Coma Scale Motor: Obeys Commands Yun Coma Scale Total: 15 Speech: Normal Motor strength normal: LUE, RUE, LLE, RLE Sensory: Normal - Psychological Associated symptoms: Normal affect, Normal mood - Skin Skin Temperature: Warm Skin Moisture: Dry Skin Color: Normal Course - Re-evaluation Re-evalutation: 10/12/18 16:40 This 28-year-old presents for a concern that she is having shortness of breath as a result of an adverse reaction related to her seizure medication. Through triage she had an x-ray ordered as well as an EKG and labs. Her x-ray is nondiagnostic, her labs are reassuring her EKG is unchanged from a previous. She does have a history of lupus though it was seronegative she is been treated. We discussed the risks and benefits of decided to stop or continue her seizure medication. At this time I believe it is prudent to continue her seizure medication. I did discuss with her the importance of obtaining follow-up with a neurologist. I offered a trial of steroids to see if potentially this is reactive airway disease. She agreed, will plan for administration of steroids over the next 5 days. - Vital Signs Vital signs: Temp Pulse Resp BP Pulse Ox 98.0 F 53 L 16 107/55 L 99 10/12/18 10:58 10/12/18 10:58 10/12/18 10:58 10/12/18 10:58 10/12/18 10:58 - Laboratory Result Diagrams: 10/12/18 12:29 10/12/18 12:29 Laboratory results interpreted by me: 10/12/18 12:29 Chloride 110 H Discharge - Discharge Clinical Impression: Shortness of breath Medication adverse effect Qualifiers: Encounter type: initial encounter Qualified Code(s): T50.905A - Adverse effect of unspecified drugs, medicaments and biological substances, initial encounter Condition: Good Disposition: HOME, SELF-CARE Additional Instructions: You were seen today in the emergency department for your shortness of breath. You had an evaluation including a physical exam, and x-ray, blood work, and EKG. Your blood work, x-ray, EKG did not show why you are feeling short of breath today. You have been given a trial of a steroid in the emergency department and will receive a prescription for the next few days. Take it and see if it improves your symptoms. If it does not improve your symptoms talk to your doctor about stopping your Topamax. If it does improve your symptoms continue to take your Topamax as previously. Prescriptions: Prednisone 50 mg PO DAILY #5 tablet Referrals: CHI TAVERAS MD [Primary Care Provider] - Follow up as needed
[2018-10-12] MEDS ORDERED: PREDNISONE 20 MG TABLET PO ONE (14:50)
== END 2018-10-12 15:03 | disposition home or self-care (01) ==
LOC: ER 10:46
DX: R06.02 Shortness of breath (principal); T50.905A Adverse effect of unspecified drugs, medicaments and biological substances, initial encounter; Y92.9 Unspecified place or not applicable; G40.909 Epilepsy, unspecified, not intractable, without status epilepticus; Z88.8 Allergy status to other drugs, medicaments and biological substances
CPT/HCPCS: 36415; 71046; 80053; 80201; 81001; 81025; 85025; 93005; 93010; 99285

== ENCOUNTER 2019-05-26 08:55 | Emergency (ER) | payer BC ==
--- NOTE | 2019-05-26 09:28 | ER Document Report ---
ED Medical Screen (RME) - General Chief Complaint: Dizziness Stated Complaint: DIZZINESS,SHORT OF BREATH Time Seen by Provider: 05/26/19 09:24 Primary Care Provider: CHI TAVERAS MD [Primary Care Provider] - Follow up as needed Mode of Arrival: Ambulatory Information source: Patient Notes: 28-year-old female presented to ED for complaint of dizziness chest wall pain left chest pain total body aches back pain headache worse today but has been going on for couple days. She states she had a syncopal episode today and actually passed out and that is what brought her into the emergency room. She does have a history of lupus and epilepsy. She states she was recently seen for illness and started on antibiotics. She states she had chest wall pain before but not as bad as this. She states she is recently had a complete metabolic panel come to include thyroid levels that her primary care can send if needed. Patient is alert oriented respirations regular and unlabored speaking in full sentences walks with even steady gait. I have greeted and performed a rapid initial assessment of this patient. A comprehensive ED assessment and evaluation of the patient, analysis of test results and completion of medical decision making process will be conducted by an additional ED providers. Dictation of this chart was performed using voice recognition software; therefore, there may be some unintended grammatical errors. TRAVEL OUTSIDE OF THE [place] IN LAST 30 DAYS: No - Related Data Allergies/Adverse Reactions: lamotrigine Allergy (Verified 05/26/19 08:58) Past Medical History - Past Medical History Cardiac Medical History: Denies: Hx Coronary Artery Disease, Hx Heart Attack, Hx Hypertension Pulmonary Medical History: Denies: Hx Asthma, Hx Bronchitis, Hx COPD, Hx Pneumonia Neurological Medical History: Reports: Hx Seizures. Denies: Hx Cerebrovascular Accident Renal/ Medical History: Denies: Hx Peritoneal Dialysis Musculoskeltal Medical History: Denies Hx Arthritis Past Surgical History: Denies: Hx Hysterectomy, Hx Pacemaker - Immunizations Hx Diphtheria, Pertussis, Tetanus Vaccination: Yes Physical Exam - Vital signs Vitals: Temp Pulse Resp BP Pulse Ox 97.3 F 63 16 100/50 L 99 05/26/19 09:13 05/26/19 09:13 05/26/19 09:13 05/26/19 09:13 05/26/19 09:13 Course - Vital Signs Vital signs: Temp Pulse Resp BP Pulse Ox 97.3 F 63 16 100/50 L 99 05/26/19 09:13 05/26/19 09:13 05/26/19 09:13 05/26/19 09:13 05/26/19 09:13 Doctor's Discharge - Discharge Referrals: CHI TAVERAS MD [Primary Care Provider] - Follow up as needed
[2019-05-26 09:54] LABS: APPEARANCE,URINE CLEAR; BILIRUBIN,URINE NEGATIVE (NEGATIVE); COLOR,URINE COLORLESS; GLUCOSE, URINE NEGATIVE (NEGATIVE); KETONES,URINE NEGATIVE (NEGATIVE); LEUKOCYTE ESTERASE,URINE NEGATIVE (NEGATIVE); NITRITE,URINE NEGATIVE (NEGATIVE); PROTEIN,URINE NEGATIVE (NEGATIVE); URINE SPECIFIC GRAVITY 1.001; UROBILINOGEN,URINE NEGATIVE mg/dL (<2.0)
[2019-05-26 09:56] LABS: ADD MANUAL MICROSCOPIC YES
[2019-05-26 10:14] LABS: URINE AMPHETAMINES SCREEN NEGATIVE; URINE BARBITURATES SCREEN NEGATIVE; URINE BENZODIAZEPINES SCREEN NEGATIVE; URINE COCAINE SCREEN NEGATIVE; URINE MARIJUANA (THC) SCREEN NEGATIVE; URINE METHADONE SCREEN NEGATIVE; URINE PHENCYCLIDINE SCREEN NEGATIVE
--- NOTE | 2019-05-26 10:27 | RADIOLOGY REPORT (SQ) ---
EXAM DESCRIPTION: CHEST 2 VIEWS COMPLETED DATE/TIME: 05/26/2019 10:11 am REASON FOR STUDY: chest wall pain COMPARISON: 10/12/2018 EXAM PARAMETERS: NUMBER OF VIEWS: two views TECHNIQUE: Digital Frontal and Lateral radiographic views of the chest acquired. RADIATION DOSE: NA LIMITATIONS: none FINDINGS: LUNGS AND PLEURA: No opacities, masses or pneumothorax. No pleural effusion. MEDIASTINUM AND HILAR STRUCTURES: No masses or contour abnormalities. HEART AND VASCULAR STRUCTURES: Heart normal size. No evidence for failure. BONES: No acute findings. HARDWARE: None in the chest. OTHER: No other significant finding. IMPRESSION: NO ACUTE RADIOGRAPHIC FINDING IN THE CHEST. TECHNICAL DOCUMENTATION: JOB ID: [id number] [employer]- All Rights Reserved Reading location - IP/workstation name: [email or web address]
[2019-05-26 10:57] LABS: ABSOLUTE EOSINOPHILS # (AUTO) 0.1 10^3/uL (0.0-0.6); ABSOLUTE LYMPHOCYTES (AUTO) 1.7 10^3/uL (0.5-4.7); ABSOLUTE MONOCYTES (AUTO) 0.2 10^3/uL (0.1-1.4); ABSOLUTE NEUT (AUTO) 2.3 10^3/uL (1.7-8.2); BASOPHILS % (AUTO) 0.5 % (0-2); EOSINOPHILS % (AUTO) 1.6 % (0-6); HEMATOCRIT 39.9 % (36.0-47.0); HEMOGLOBIN 13.5 g/dL (12.0-15.5); LYMPHOCYTES % (AUTO) 39.2 % (13-45); MEAN CORPUSCULAR HEMOGLOBIN 29.7 pg (27.0-33.4); MEAN CORPUSCULAR HGB CONC 33.7 g/dL (32.0-36.0); MEAN CORPUSCULAR VOLUME 88 fl (80-97); MONOCYTES % (AUTO) 5.3 % (3-13); PLATELET COUNT 211 10^3/uL (150-450); RED BLOOD COUNT 4.54 10^6/uL (3.72-5.28); RED CELL DISTRIBUTION WIDTH 12.2 % (11.5-14.0); SEGMENTED NEUTROPHILS % (AUTO) 53.4 % (42-78); TOTAL CELLS COUNTED % (AUTO) 100 %; WHITE BLOOD COUNT 4.2 10^3/uL (4.0-10.5)
[2019-05-26 11:08] LABS: INTERNATIONAL RATION (INR) 0.98
[2019-05-26 11:09] LABS: PARTIAL THROMBOPLASTIN TIME 25.8 SEC (23.5-35.8)
[2019-05-26 11:15] LABS: ALBUMIN 4.5 g/dL (3.5-5.0); ALKALINE PHOSPHATASE 33 U/L (38-126); ANION GAP 9 (5-19); ASPARTATE AMINO TRANSFERASE 36 U/L (14-36); BILIRUBIN,DIRECT 0.2 mg/dL (0.0-0.4); BILIRUBIN,TOTAL 0.7 mg/dL (0.2-1.3); BLOOD UREA NITROGEN 11 mg/dL (7-20); CALCIUM 9.5 mg/dL (8.4-10.2); CARBON DIOXIDE 26 mmol/L (22-30); CHLORIDE 103 mmol/L (98-107); CREATINE KINASE 40 U/L (30-135); GLUCOSE 77 mg/dL (75-110); POTASSIUM 4.4 mmol/L (3.6-5.0); TOTAL PROTEIN 7.2 g/dL (6.3-8.2)
[2019-05-26 11:56] LABS: NT PRO BNP 50 pg/mL (<125)
[2019-05-26 11:57] LABS: CREATINE KINASE MB < 0.22 ng/mL (<4.55); TROPONIN I < 0.012 ng/mL
--- NOTE | 2019-05-26 13:08 | RADIOLOGY REPORT (SQ) ---
EXAM DESCRIPTION: CT HEAD WITHOUT COMPLETED DATE/TIME: 05/26/2019 12:54 pm REASON FOR STUDY: syncope, possible seizure COMPARISON: 05/24/2018 TECHNIQUE: Axial images acquired through the brain without intravenous contrast. Images reviewed wi th bone, brain and subdural windows. Additional sagittal and coronal reconstructions were generated. Images stored on PACS. All CT scanners at this facility use dose modulation, iterative reconstruction, and/or weight based d osing when appropriate to reduce radiation dose to as low as reasonably achievable (ALARA). [facility]: Dose Right [facility]: CareDose [facility]: Dose Right [facility]: Teradose 4D [facility]: [employer] RADIATION DOSE: CT Rad equipment meets quality standard of care and radiation dose reduction techniq ues were employed. CTDIvol: 53.2 mGy. DLP: 1070 mGy-cm. mGy. LIMITATIONS: None. FINDINGS: VENTRICLES: Normal size and contour. CEREBRUM: No masses. No hemorrhage. No midline shift. No evidence for acute infarction. Normal gra y/white matter differentiation. No areas of low density in the white matter. CEREBELLUM: No masses. No hemorrhage. No alteration of density. No evidence for acute infarction. EXTRAAXIAL SPACES: No fluid collections. No masses. ORBITS AND GLOBE: No intra- or extraconal masses. Normal contour of globe without masses. CALVARIUM: No fracture. PARANASAL SINUSES: No fluid or mucosal thickening. SOFT TISSUES: No mass or hematoma. OTHER: No other significant finding. IMPRESSION: No acute intracranial pathology. EVIDENCE OF ACUTE STROKE: NO. COMMENT: Quality ID # [id number]: Final reports with documentation of one or more dose reduction techniques (e.g., Automated exposure control, adjustment of the mA and/or kV according to patient size, use of iterative reconstruction technique) TECHNICAL DOCUMENTATION: JOB ID: [id number] [employer]- All Rights Reserved Reading location - IP/workstation name: [email or web address]
--- NOTE | 2019-05-26 13:26 | EKG REPORT ---
SEVERITY:- ABNORMAL ECG - SINUS RHYTHM INCOMPLETE RIGHT BUNDLE BRANCH BLOCK : Confirmed by: Jean-Paul Fairbanks MD 26-May-2019 13:26:03
[2019-05-26 14:17] VITALS: BP 91/69
--- NOTE | 2019-05-26 14:22 | ER Document Report ---
ED General - General Chief Complaint: Dizziness Stated Complaint: DIZZINESS,SHORT OF BREATH Time Seen by Provider: 05/26/19 09:24 Primary Care Provider: CHI TAVERAS MD [Primary Care Provider] - Follow up as needed Mode of Arrival: Ambulatory Notes: Patient is a 28-year-old female with past medical history of seizures presenting to the emergency department with chief complaint of syncopal episode. Patient was apparently at work today when she "passed out". Her states this was witnessed by others and they reported that she was out for about 2 minutes afterwards. She states that she has had near syncopal episodes several times over the last few weeks. She reports that she sees a neurologist for her seizures. She is currently taking Keppra. She denies any recent illness and at the time of arrival states that she feels well. TRAVEL OUTSIDE OF THE [place] IN LAST 30 DAYS: No - Related Data Allergies/Adverse Reactions: lamotrigine Allergy (Verified 05/26/19 08:58) Past Medical History - General Information source: Patient - Social History Smoking Status: Never Smoker Frequency of alcohol use: None Drug Abuse: None Family History: Reviewed & Not Pertinent Patient has suicidal ideation: No Patient has homicidal ideation: No - Past Medical History Cardiac Medical History: Denies: Hx Coronary Artery Disease, Hx Heart Attack, Hx Hypertension Pulmonary Medical History: Denies: Hx Asthma, Hx Bronchitis, Hx COPD, Hx Pneumonia Neurological Medical History: Reports: Hx Seizures. Denies: Hx Cerebrovascular Accident Renal/ Medical History: Denies: Hx Peritoneal Dialysis Musculoskeletal Medical History: Denies Hx Arthritis Surgical Hx: Negative Past Surgical History: Denies: Hx Hysterectomy, Hx Pacemaker - Immunizations Hx Diphtheria, Pertussis, Tetanus Vaccination: Yes Review of Systems - Review of Systems Constitutional: See HPI EENT: No symptoms reported Cardiovascular: No symptoms reported Respiratory: No symptoms reported Gastrointestinal: No symptoms reported Genitourinary: No symptoms reported Female Genitourinary: No symptoms reported Musculoskeletal: No symptoms reported Skin: No symptoms reported Hematologic/Lymphatic: No symptoms reported Neurological/Psychological: See HPI Physical Exam - Vital signs Vitals: Temp Pulse Resp BP Pulse Ox 97.3 F 63 16 100/50 L 99 05/26/19 09:13 05/26/19 09:13 05/26/19 09:13 05/26/19 09:13 05/26/19 09:13 - Notes Notes: PHYSICAL EXAMINATION: GENERAL: Well-appearing, well-nourished and in no acute distress. HEAD: Atraumatic, normocephalic. EYES: Pupils equal round and reactive to light, extraocular movements intact, conjunctiva are normal. ENT: Nares patent, oropharynx clear without exudates. Moist mucous membranes. NECK: Normal range of motion, supple without lymphadenopathy LUNGS: Breath sounds clear to auscultation bilaterally and equal. No wheezes rales or rhonchi. HEART: Regular rate and rhythm without murmurs ABDOMEN: Soft, nontender, nondistended abdomen. No guarding, no rebound. No masses appreciated. Female : deferred Musculoskeletal: Normal range of motion, no pitting or edema. No cyanosis. NEUROLOGICAL: Cranial nerves grossly intact. Normal speech, normal gait. Normal sensory, motor exams PSYCH: Normal mood, normal affect. SKIN: Warm, Dry, normal turgor, no rashes or lesions noted. Course - Re-evaluation Re-evalutation: Laboratory 05/26/19 05/26/19 05/26/19 09:29 09:32 09:32 WBC RBC Hgb Hct MCV MCH MCHC RDW Plt Count Seg Neutrophils % Lymphocytes % Monocytes % Eosinophils % Basophils % Absolute Neutrophils Absolute Lymphocytes Absolute Monocytes Absolute Eosinophils Absolute Basophils PT INR APTT Sodium Potassium Chloride Carbon Dioxide Anion Gap BUN Creatinine Est GFR ( Amer) Est GFR (Non-Af Amer) Glucose POC Glucose 81 Calcium Total Bilirubin Direct Bilirubin Neonat Total Bilirubin Neonat Direct Bilirubin Neonat Indirect Bili AST ALT Alkaline Phosphatase Creatine Kinase CK-MB (CK-2) Troponin I NT-Pro-B Natriuret Pep Total Protein Albumin Serum HCG, Qual Urine Color COLORLESS Urine Appearance CLEAR Urine pH 9.0 Ur Specific Mott 1.001 Urine Protein NEGATIVE Urine Glucose (UA) NEGATIVE Urine Ketones NEGATIVE Urine Blood NEGATIVE Urine Nitrite NEGATIVE Urine Bilirubin NEGATIVE Urine Urobilinogen NEGATIVE Ur Leukocyte Esterase NEGATIVE Ur Squamous Epith Cells FEW Urine Mucus TRACE Urine Ascorbic Acid NEGATIVE Urine Opiates Screen NEGATIVE Urine Methadone Screen NEGATIVE Ur Barbiturates Screen NEGATIVE Ur Phencyclidine Scrn NEGATIVE Ur Amphetamines Screen NEGATIVE U Benzodiazepines Scrn NEGATIVE Urine Cocaine Screen NEGATIVE U Marijuana (THC) Screen NEGATIVE 05/26/19 05/26/19 05/26/19 10:50 10:50 10:50 WBC 4.2 RBC 4.54 Hgb 13.5 Hct 39.9 MCV 88 MCH 29.7 MCHC 33.7 RDW 12.2 Plt Count 211 Seg Neutrophils % 53.4 Lymphocytes % 39.2 Monocytes % 5.3 Eosinophils % 1.6 Basophils % 0.5 Absolute Neutrophils 2.3 Absolute Lymphocytes 1.7 Absolute Monocytes 0.2 Absolute Eosinophils 0.1 Absolute Basophils 0.0 PT 13.0 INR 0.98 APTT 25.8 Sodium 137.7 Potassium 4.4 Chloride 103 Carbon Dioxide 26 Anion Gap 9 BUN 11 Creatinine 0.64 Est GFR ( Amer) > 60 Est GFR (Non-Af Amer) > 60 Glucose 77 POC Glucose Calcium 9.5 Total Bilirubin 0.7 Direct Bilirubin 0.2 Neonat Total Bilirubin Not Reportable Neonat Direct Bilirubin Not Reportable Neonat Indirect Bili Not Reportable AST 36 ALT 22 Alkaline Phosphatase 33 L Creatine Kinase 40 CK-MB (CK-2) Troponin I NT-Pro-B Natriuret Pep Total Protein 7.2 Albumin 4.5 Serum HCG, Qual Urine Color Urine Appearance Urine pH Ur Specific Mott Urine Protein Urine Glucose (UA) Urine Ketones Urine Blood Urine Nitrite Urine Bilirubin Urine Urobilinogen Ur Leukocyte Esterase Ur Squamous Epith Cells Urine Mucus Urine Ascorbic Acid Urine Opiates Screen Urine Methadone Screen Ur Barbiturates Screen Ur Phencyclidine Scrn Ur Amphetamines Screen U Benzodiazepines Scrn Urine Cocaine Screen U Marijuana (THC) Screen 05/26/19 05/26/19 10:50 10:50 WBC RBC Hgb Hct MCV MCH MCHC RDW Plt Count Seg Neutrophils % Lymphocytes % Monocytes % Eosinophils % Basophils % Absolute Neutrophils Absolute Lymphocytes Absolute Monocytes Absolute Eosinophils Absolute Basophils PT INR APTT Sodium Potassium Chloride Carbon Dioxide Anion Gap BUN Creatinine Est GFR ( Amer) Est GFR (Non-Af Amer) Glucose POC Glucose Calcium Total Bilirubin Direct Bilirubin Neonat Total Bilirubin Neonat Direct Bilirubin Neonat Indirect Bili AST ALT Alkaline Phosphatase Creatine Kinase CK-MB (CK-2) < 0.22 Troponin I < 0.012 NT-Pro-B Natriuret Pep 50 Total Protein Albumin Serum HCG, Qual NEGATIVE Urine Color Urine Appearance Urine pH Ur Specific Mott Urine Protein Urine Glucose (UA) Urine Ketones Urine Blood Urine Nitrite Urine Bilirubin Urine Urobilinogen Ur Leukocyte Esterase Ur Squamous Epith Cells Urine Mucus Urine Ascorbic Acid Urine Opiates Screen Urine Methadone Screen Ur Barbiturates Screen Ur Phencyclidine Scrn Ur Amphetamines Screen U Benzodiazepines Scrn Urine Cocaine Screen U Marijuana (THC) Screen Chest X-Ray 05/26/19 09:25 IMPRESSION: NO ACUTE RADIOGRAPHIC FINDING IN THE CHEST. Head CT 05/26/19 12:35 IMPRESSION: No acute intracranial pathology. EVIDENCE OF ACUTE STROKE: NO. Work-up today was unremarkable as outlined above, labs, chest x-ray and head CT were without any acute findings. Patient did get up to use the restroom and staff called us to the room stating that she was "on the floor seizing". Myself and my attending physician immediately went to the patient where we found her lying in bed sitting up talking in no acute distress. It does not sound like she had a seizure from what the family and nursing staff describe. She did not have any loss of consciousness and did not lose control of any urinary function. Patient has been monitored here in the emergency department for several hours on the [employer] and has no had no cardiac events. She is stable for discharge at this time. I did instruct her that there is to be no driving of any vehicles until cleared by her neurologist, patient and family verbalized understanding and agreement with this plan. I also informed her to please continue all home medications as prescribed by her primary care provider and neurologist. The patient's emergency department workup and current diagnosis were explained to the patient and or family. Follow-up instructions were provided. Medications if prescribed were discussed. Instructions for when to return to the emergency department including specific worrisome symptoms were discussed with the patient and/or family. - Vital Signs Vital signs: Temp Pulse Resp BP Pulse Ox 98.0 F 63 16 91/69 L 100 05/26/19 14:28 05/26/19 09:13 05/26/19 14:00 05/26/19 14:01 05/26/19 14:01 - Laboratory Result Diagrams: 05/26/19 10:50 05/26/19 10:50 Laboratory results interpreted by me: 05/26/19 10:50 Alkaline Phosphatase 33 L Discharge - Discharge Clinical Impression: Dizziness Syncopal episodes Qualifiers: Syncope type: unspecified Qualified Code(s): R55 - Syncope and collapse Condition: Stable Disposition: HOME, SELF-CARE Additional Instructions: Your work-up today was unremarkable. A copy of your labs and imaging has been provided for you. My suggestion is for you to follow-up with your primary care provider and get an appointment with your neurologist. Please return to the emergency department with any new or worsening symptoms. Please continue taking all medications as prescribed by your primary care provider. I have provided you with a work note I would like you to stay out of work until you are seen by your primary medical team. No driving until seen by your primary medical team. Forms: Return to Work Referrals: CHI TAVERAS MD [Primary Care Provider] - Follow up as needed
== END 2019-05-26 14:33 | disposition home or self-care (01) ==
LOC: ER 08:55
DX: R55 Syncope and collapse (principal); R42 Dizziness and giddiness; R56.9 Unspecified convulsions; Z79.899 Other long term (current) drug therapy; Z88.8 Allergy status to other drugs, medicaments and biological substances
CPT/HCPCS: 36415; 70450; 71046; 80053; 80307; 81001; 82550; 82553; 82962; 83880; 84484; 84703; 85025; 85610; 85730; 93005; 93010; 99284

== ENCOUNTER 2020-06-17 13:17 | Emergency (ER) | payer BC ==
[2020-06-17 14:56] LABS: ABSOLUTE LYMPHOCYTES (AUTO) 1.4 10^3/uL (0.5-4.7); ABSOLUTE MONOCYTES (AUTO) 0.2 10^3/uL (0.1-1.4); ABSOLUTE NEUT (AUTO) 3.5 10^3/uL (1.7-8.2); BASOPHILS % (AUTO) 0.5 % (0-2); EOSINOPHILS % (AUTO) 0.2 % (0-6); HEMATOCRIT 42.5 % (36.0-47.0); HEMOGLOBIN 14.6 g/dL (12.0-15.5); LYMPHOCYTES % (AUTO) 26.5 % (13-45); MEAN CORPUSCULAR HEMOGLOBIN 30.4 pg (27.0-33.4); MEAN CORPUSCULAR HGB CONC 34.3 g/dL (32.0-36.0); MEAN CORPUSCULAR VOLUME 89 fl (80-97); MONOCYTES % (AUTO) 4.2 % (3-13); PLATELET COUNT 183 10^3/uL (150-450); RED CELL DISTRIBUTION WIDTH 12.3 % (11.5-14.0); SEGMENTED NEUTROPHILS % (AUTO) 68.6 % (42-78); TOTAL CELLS COUNTED % (AUTO) 100 %; WHITE BLOOD COUNT 5.1 10^3/uL (4.0-10.5)
[2020-06-17 15:13] LABS: ALBUMIN 4.3 g/dL (3.5-5.0); ALKALINE PHOSPHATASE 42 U/L (38-126); ANION GAP 9 (5-19); ASPARTATE AMINO TRANSFERASE 21 U/L (14-36); BILIRUBIN,DIRECT 0.2 mg/dL (0.0-0.4); BILIRUBIN,TOTAL 0.4 mg/dL (0.2-1.3); BLOOD UREA NITROGEN 11 mg/dL (7-20); CALCIUM 8.8 mg/dL (8.4-10.2); CARBON DIOXIDE 24 mmol/L (22-30); CHLORIDE 107 mmol/L (98-107); GLUCOSE 93 mg/dL (75-110); POTASSIUM 3.9 mmol/L (3.6-5.0); TOTAL PROTEIN 6.8 g/dL (6.3-8.2)
[2020-06-17 16:08] LABS: APPEARANCE,URINE CLEAR; BILIRUBIN,URINE NEGATIVE (NEGATIVE); COLOR,URINE STRAW; GLUCOSE, URINE NEGATIVE (NEGATIVE); KETONES,URINE NEGATIVE (NEGATIVE); LEUKOCYTE ESTERASE,URINE NEGATIVE (NEGATIVE); NITRITE,URINE NEGATIVE (NEGATIVE); PROTEIN,URINE NEGATIVE (NEGATIVE); URINE SPECIFIC GRAVITY 1.006; UROBILINOGEN,URINE NEGATIVE mg/dL (<2.0)
[2020-06-17] MEDS ORDERED: KETOROLAC TROMETHAMINE INJ/PF 30 MG/1 ML SDV IV ONE (16:22)
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
[2020-06-17 18:55] VITALS: BP 109/56
== END 2020-06-17 18:15 | disposition home or self-care (01) ==
LOC: ER 13:17
DX: G40.909 Epilepsy, unspecified, not intractable, without status epilepticus (principal); R55 Syncope and collapse
CPT/HCPCS: 36415; 80053; 80177; 81001; 84703; 85025; 99284